=== PATIENT | female | born 1990 | race Caucasian/White ===

== ENCOUNTER 2018-01-15 19:22 | Emergency (ER) | payer OTHER ==
[~2018-01-15] VITALS: Ht 149.9 cm; Wt 52.2 kg
[~2018-01-15 19:22] MED LIST: PHENERGAN 25 MG25 M1 PO; PROMS25 WY RECTAL; ZOFRAN ODT4 MG PO
[2018-01-15] MEDS ORDERED: IBUPROFEN 600600 M1 PO (20:32)
[2018-01-15] MEDS ORDERED: NORFLEX100 MG PO (20:32)
[2018-01-15 21:21] VITALS: BP 125/81
== END 2018-01-15 20:41 | disposition home or self-care (01) ==
LOC: ER 19:22
DX: S39.012A Strain of muscle, fascia and tendon of lower back, initial encounter (principal); Z88.2 Allergy status to sulfonamides; Z88.5 Allergy status to narcotic agent; V59.40XA Driver of pick-up truck or van injured in collision with unspecified motor vehicles in traffic accident, initial encounter; Y93.89 Activity, other specified; Y92.89 Other specified places as the place of occurrence of the external cause; Y99.8 Other external cause status